=== PATIENT | male | born 1985 | race Caucasian/White ===

== ENCOUNTER 2022-04-14 10:52 | Day surgery (SDC) | payer OTHER ==
[2022-04-14] MEDS ORDERED: CEFAZOLIN 2G/50ML 0.9% NS 2 GM/50 ML BAG IV ONE (10:58)
[2022-04-14] MEDS ORDERED: LACTATED RINGERS 1,000 ML IV ONE ×2 (11:10→15:56)
[2022-04-14] MEDS ORDERED: BUPIVACAINE 0.25% PF 10 ML VIAL ONE (13:23)
[2022-04-14] MEDS ORDERED: MIDAZOLAM 2 MG/2 ML VIAL ONE (13:25)
[2022-04-14] MEDS ORDERED: PROPOFOL 200 MG/20 ML VIAL IVP ONE (13:25)
[2022-04-14] MEDS ORDERED: ROCURONIUM 50 MG/5 ML VIAL ONE ×2 (13:25→15:45)
[2022-04-14] MEDS ORDERED: fentaNYL 100 MCG/2 ML VIAL ONE ×2 (13:25→14:40)
[2022-04-14] MEDS ORDERED: DEXAMETHASONE 4 MG/ML VIAL ONE (13:25)
[2022-04-14] MEDS ORDERED: ONDANSETRON 4 MG/2 ML VIAL ONE (13:25)
--- NOTE | 2022-04-14 13:36 | ANESTHESIA ---
Pre-Anesthesia VS, & Labs - Diagnosis recurrent ventral hernia - Procedure laparoscopic ventral hernia repair Vital Signs: Temp Pulse Resp BP Pulse Ox O2 Flow Rate 37.6 C 88 16 123/84 H 99 0 04/14/22 11:13 04/14/22 11:13 04/14/22 11:13 04/14/22 11:13 04/14/22 11:13 04/14/22 11:13 Height: 6 ft Weight (kg): 91 kg Body Mass Index: 27.1 BMI Classification: Overweight - NPO >8 hours Home Medications and Allergies Home Medications: Ambulatory Orders Citalopram [CeleXA] 20 mg PO DAILY 04/08/22 Citalopram [CeleXA] 20 mg PO DAILY 04/08/22 Allergies/Adverse Reactions: Allergies Allergy/AdvReac Type Severity Reaction Status Date / Time No Known Drug Allergies Allergy Verified 04/08/22 14:31 Anes History & Medical History - Anesthetic History Anesthesia Complications: reports: No previous complications Family history of Anesthesia Complications: Denies Family history of Malignant Hyperthermia: Denies - Medical History Cardiovascular: reports: None Pulmonary: reports: None Gastrointestinal: reports: None Urinary: reports: None Musculoskeletal: reports: Chronic back pain, Other Endocrine/Autoimmune: reports: None Blood Disorders: reports: None Skin: reports: None Smoking Status: Never smoker Psychosocial: reports: Alcohol History of Cancer?: No - Surgical History General: reports: Other (ventral hernia repair) Exam General: Alert, Oriented x3, Cooperative, No acute distress Dental: WNL Mouth Openin Fingerbreadth Neck Mobility: Normal Mallampati classification: II Thyromental Distance: less than 4 cm Mental/Cognitive Status: Alert/Oriented X3, Normal for patient Cognitive Status: Within normal limits Plan Anesthesia Type: General, Total IV Consent for Procedure(s) Verified and Reviewed: Yes Code Status: Attempt Resuscitation ASA classification: 2-Mild systemic disease Is this case an emergency?: No
[2022-04-14] MEDS ORDERED: ACETAMINOPHEN 1,000 MG/100 ML 1,000 MG/100 ML BAG IV ONE (14:19)
[2022-04-14] MEDS ORDERED: BUPIVACAINE 0.25% PF 30 ML VIAL SUBQ ONE (14:25)
[2022-04-14] MEDS ORDERED: ePHEDrine 50 MG/ML VIAL IVP ONE (14:31)
[2022-04-14] MEDS ORDERED: KETOROLAC 30 MG/ML VIAL ONE (15:49)
[2022-04-14] MEDS ORDERED: SUGAMMADEX 200 MG/2 ML VIAL IVP ONE (15:49)
[2022-04-14] MEDS ORDERED: fentaNYL 100 MCG/2 ML VIAL IVP PRN (16:01)
[2022-04-14] MEDS ORDERED: MORPHINE 2 MG/ML CARPUJECT IVP PRN (16:01)
[2022-04-14] MEDS ORDERED: NALOXONE 0.4 MG/ML VIAL IVP PRN (16:01)
[2022-04-14] MEDS ORDERED: HYDROmorphone 0.5 MG/0.5 ML SYRINGE IVP PRN ×2 (16:01→16:02)
[2022-04-14] MEDS ORDERED: ONDANSETRON 4 MG/2 ML VIAL IVP PRN (16:01)
[2022-04-14] MEDS ORDERED: ATROPINE ABBOJECT 1 MG/10 ML SYRINGE IVP PRN (16:01)
[2022-04-14] MEDS ORDERED: PROMETHAZINE 25 MG TABLET PO PRN (16:06)
[2022-04-14] MEDS ORDERED: KETOROLAC 15 MG/ML VIAL IVP PRN (16:07)
[2022-04-14] MEDS ORDERED: ACETAMINOPHEN 325 MG TABLET PO PRN (16:08)
[2022-04-14] MEDS ORDERED: HYDROmorphone 1 MG/ML CARPUJECT ONE (16:12)
[2022-04-14] MEDS: HYDROmorphone 1 MG/ML CARPUJECT ONE ×2 (16:12→16:22)
--- NOTE | 2022-04-14 16:19 | ANESTHESIA POST OP EVALUATION ---
Anesthesia Post Eval - Post Anesthesia Eval Vitals: Last Vital Signs Temp 36.9 C 04/14/22 16:10 Pulse 74 04/14/22 16:10 Resp 14 04/14/22 16:10 BP 126/86 H 04/14/22 16:10 Pulse Ox 98 04/14/22 16:10 O2 Flow Rate 0 04/14/22 11:13 CV Function Including HR & BP: Stable Pain Control: Satisfactory Nausea & Vomiting: Negative Mental Status: Baseline Respiratory Status: Airway Patent Hydration Status: Satisfactory Anesthesia Complications: None
--- NOTE | 2022-04-14 16:24 | OPERATIVE REPORT ---
Operative Report - General Procedure Date: 04/14/22 Planned Procedure: laparoscopic repair incarcerated ventral hernia Pre-Op Diagnosis: incarcerated ventral hernia Procedure Performed: laparoscopic repair incarcerated ventral hernia Post Op Diagnosis: same - Procedure Note Primary Surgeon: macy caldwell Anesthesia Technique: General ET tube, Local Pathology: none Estimated Blood Loss (mL): 5 Drain/Tube Type: Other (none) Indications: painful hernia Findings: 5 x 7 in ventrlight mesh Complications: none - Other Other Information/Narrative: The patient was properly identified brought to the operating room and placed in supine position. Sequential compression devices were placed. General endotracheal anesthesia was induced. He was prepped and draped in a sterile fashion. Antibiotics were given. Local anesthetic was given to incision areas. A lateral left upper quadrant 3 cm incision was made. Dissection proceeded down to the fascia. Fascia was nicked and then pulled upwards Veress needle was placed. CO2 was insufflated to a pressure of 15. 11 mm trocar with camera was placed under vision. There was no evidence of injury from Veress needle or trocar placement. 5 mm trochars were placed in the left lower quadrant right lower quadrant and right upper quadrant. He had approximately 4 to 5 cm of incarcerated preperitoneal adipose tissue through a supraumbilical ventral defect. This was taken down in continuity with the falciform ligament. Hemostasis was assured. Defect measured approximately 3 x 6 cm. He had a moderate diastases as well. 6 x 8 inch ventral light mesh was cut to 5 x 7 inches. The mesh was placed intra-abdominal and secured with 6 interrupted 0 Ethibond sutures. The sutures were pulled through the abdominal wall with the use of a fascia stitch passer. The mesh lay in good position without tension. The mesh was further secured with approximately 40 CapSure tacks hemostasis was assured. No apparent complications. Trochars were removed under direct vision and CO2 evacuated. Fascia at the left upper quadrant trocar site was closed with a running 0 Vicryl. Skin was closed with buried interrupted or running 4-0 Monocryl. Dressings were applied. He tolerated the procedure well was awakened and brought to recovery in good condition.
[2022-04-14] MEDS: LACTATED RINGERS 1,000 ML IV SCH ×2 (17:02→18:47)
[2022-04-14] MEDS: oxyCODONE 5 MG TABLET PO PRN ×2 (18:53→23:03)
[2022-04-15] MEDS: oxyCODONE 5 MG TABLET PO PRN (03:25)
[2022-04-15] MEDS ORDERED: CITALOPRAM 10 MG TABLET PO SCH (09:00)
[2022-04-15 09:51] VITALS: BP 111/62
== END 2022-04-15 10:30 | disposition home or self-care (01) ==
LOC: SDS 10:52 → MS2 16:33 → SDS 04-15 10:30
PROVIDERS: ATTEND Surgery
DX: K43.6 Other and unspecified ventral hernia with obstruction, without gangrene (principal); M62.08 Separation of muscle (nontraumatic), other site; Z87.891 Personal history of nicotine dependence
CPT/HCPCS: 49653; A9270; C1781; J0131; J0690; J1170; J7120; Q0169